=== PATIENT | male | born 1955 | race Caucasian/White ===

== ENCOUNTER 2024-07-05 18:42 | Outpatient (CLI) | payer MEDICARE | END 2024-07-05 18:43 | disposition critical access hospital (66) | LOC: EMS 18:42 | DX: T63.441A Toxic effect of venom of bees, accidental (unintentional), initial encounter (principal); L50.0 Allergic urticaria | CPT/HCPCS: A0425; A0427 ==

== ENCOUNTER 2024-07-05 18:55 | Emergency (ER) | payer MEDICARE ==
[2024-07-05 19:14] VITALS: O2SAT 100
--- NOTE | 2024-07-05 19:17 | ED Physician Documentation ---
PD HPI SKIN - Stated complaint Stated Complaint: BEE STING - HIVES - Chief complaint Chief Complaint: Allergic Rx - History obtained from History obtained from: Patient - Additional information Additional information: The patient comes to the emergency department chief complaint of itchy rash after bee sting about 45 minutes ago. He states that he has never had a reaction to any hymenoptera in recent years, though he did as a child have an allergic reaction to a bee sting once before. He states that he did not have any swelling of his mouth or throat and no difficulty breathing. He states that he did not have any nausea. The rash seems to have escalated mildly and is mainly on his arms and his trunk though he feels that he may have a couple of lesions on his legs. The patient denies allergies to anything else. He was given a dose of Benadryl and route. He states he is no longer itching is much as he was previously. No other complaints at this time. PD PAST MEDICAL HISTORY - Past Medical History Past Medical History: No - Present Medications Home Medications: Ambulatory Orders Medication Instructions Recorded Confirmed EPINEPHrine [Epinephrine] 0.3 mg IJ ONCE PRN #1 each 07/05/24 Famotidine [Pepcid] 20 mg PO BID #6 tablet 07/05/24 predniSONE [Deltasone] 60 mg PO DAILY 3 Days #9 tablet 07/05/24 - Allergies Allergies/Adverse Reactions: Allergies Allergy/AdvReac Type Severity Reaction Status Date / Time No Known Drug Allergies Allergy Verified 07/05/24 19:16 - Social History Does the pt smoke?: No Smoking Status: Never smoker PD ED PE NORMAL - Vitals Vital signs reviewed: Yes - General General: Alert and oriented X 3, No acute distress, Well developed/nourished - HEENT HEENT: Atraumatic, PERRL, EOMI, Moist mucous membranes, Pharynx benign, Other (No oropharyngeal swelling) - Neck Neck: Supple, no meningeal sign - Cardiac Cardiac: RRR, No murmur, Strong equal pulses - Respiratory Respiratory: No respiratory distress, Clear bilaterally - Derm Derm: Warm and dry, Other (Mild maculopapular and urticarial rash on bilateral forearms. No facial rash.) - Extremities Extremities: No deformity, No edema - Neuro Neuro: Alert and oriented X 3 - Psych Psych: Normal mood, Normal affect Results - Vitals Vitals: Vital Signs - 24 hr 07/05/24 19:04 Temperature 36.8 C Heart Rate 56 L Respiratory 15 Rate Blood Pressure 135/64 H O2 Saturation 100 Oxygen O2 Source Room air PD Medical Decision Making - ED course Complexity details: considered differential, d/w patient ED course: The patient overall looked good and had no evidence of anaphylaxis. He had already been given IV Benadryl and was now treated with IV Decadron and an oral dose of Pepcid. He was observed in the emergency department to ensure that there is no further progression of his allergic reaction. I have discussed with him that it would be a good idea for him to have an EpiPen around at home since he states he does work out in the garden quite a bit. I have prescribed this for him as well as a couple more days worth of the antiallergy meds he has been given today. We have discussed the usual indications for return. Departure - Departure Disposition: Home, Self Care Clinical Impression: Allergic reaction to hymenoptera venom Condition: Stable Instructions: ED Bite Sting Insect Gen Allergic React Prescriptions: predniSONE [Deltasone] 60 mg PO DAILY 3 Days #9 tablet EPINEPHrine [Epinephrine] 0.3 mg IJ ONCE PRN #1 each PRN Reason: Anaphylaxis Famotidine [Pepcid] 20 mg PO BID #6 tablet Comments: There is no evidence of any anaphylactic reaction tonight. You have been given IV Benadryl by the medics as well as IV steroids and Pepcid here in [facility]. There is no need for epinephrine tonight but if you are doing a lot of work outside, it is good to have an EpiPen on hand in case she gets stung again and get a much worse reaction. A prescription for this, as well as for Pepcid and steroid, have been electronically transmitted to the [facility] pharmacy in [place]. You may get Benadryl [id number]. You may take the medications as needed for continued rash and itching. Please follow-up with your primary doctor to discuss any further concerns. Forms: PCP List
[2024-07-05] MEDS: DEXAMETHASONE 10 MG/ML VIAL IVP STA (19:24)
[2024-07-05] MEDS: FAMOTIDINE 20 MG TABLET PO STA (19:24)
[2024-07-05 20:25] VITALS: BP 122/73
== END 2024-07-05 20:40 | disposition home or self-care (01) ==
LOC: ED 18:55
DX: T63.441A Toxic effect of venom of bees, accidental (unintentional), initial encounter (principal)
CPT/HCPCS: 96374; 99283; A9270